=== PATIENT | female | born 1970 | race Caucasian/White ===

== ENCOUNTER 2017-10-02 11:36 | Emergency (ER) | payer BC ==
[2017-10-02] MEDS ORDERED: NS 1,000 ML IV ONE ×2 (12:13)
[2017-10-02] MEDS ORDERED: ONDANSETRON 4 MG/2 ML VIAL IVP ONE (12:13)
[2017-10-02] MEDS ORDERED: KETOROLAC 30 MG/1 ML SDV IVP ONE (12:13)
--- NOTE | 2017-10-02 12:13 | EDPHY ---
H & P Stated Complaint: 2 weeks l flank pain/l abd pain/being worked up for kidney stones Time Seen by Provider: 10/02/17 12:12 HPI/ROS: HPI: This is a 47-year-old female who presents with Chief Complaint: 2 weeks l flank pain/l abd pain/being worked up for kidney stones Location: Left flank Quality: Sharp pain Duration: 1-2 week Signs and Symptoms: no fever, + nausea, no vomiting, no hematemesis, no blood in stool, +abdominal bloating, no diarrhea, no back pain, no urinary symptoms, no vaginal bleeding/discharge, no indigestion, no chest pain, no shortness of breath Timing: Constant Severity: Severe Context: Patient has a history of kidney stones, opiate abuse, diabetes, hypertension presents with the emergency room with complaints 2 week history of left flank pain that radiates up into her chest and accompanied by nausea and abdominal bloating. She has of retroperitoneal ultrasound ordered outpatient tomorrow. She is unsure of her last bowel movement. Denies fever/vomiting/ diarrhea. Eating and drinking normally. Modifying Factors: None Comment: ROS: see HPI Constitutional: No fever, no chills, no weight loss Eyes: No blurred vision Respiratory: No shortness of breath, no cough Cardiovascular: No chest pain, no palpitations Gastrointestinal: No nausea, no vomiting, no diarrhea, no hematemesis, no blood in stool Genitourinary: No dysuria, no blood in urine Extremities: No myalgias, no edema Neurologic: No weakness, no numbness Skin: No rashes, no petechiae Hematologic: No bruising, no bleeding MEDICAL/SURGICAL/SOCIAL HISTORY: Medical history: kidney stones/opiate abuse/diabetic/htn Surgical history: Denies Social history: . Has children. CONSTITUTIONAL: Nontoxic appearing adult white female, awake and alert, no obvious distress HEENT: Atraumatic and normocephalic, PERRL, EOMI. Tympanic membranes clear. Oropharynx clear, no exudate and moist pink mucosa. Airway patent. No lymphadenopathy. No meningismus. Cardiovascular: Normal S1/S2, regular rate, regular rhythm, without murmur rub or gallop. PULMONARY/CHEST: Symmetrical and nontender. Clear to auscultation bilaterally. Good air movement. No accessory muscle usage. ABDOMEN: Soft, nondistended, nontender, no rebound, no guarding, no peritoneal signs, no masses or organomegaly. left CVAT. EXTREMITIES: 2/2 pulses, strength 5/5, no deformities, no clubbing, no cyanosis or edema. NEUROLOGICAL: no focal neuro deficits. GCS 15. SKIN: Warm and dry, no erythema. no rash. Good capillary refill. Source: Patient Exam Limitations: No limitations - Personal History LMP (Females 10-55): 15-21 Days Ago Current Tetanus/Diphtheria Vaccine: Unsure - Medical/Surgical History Hx Asthma: No Hx Chronic Respiratory Disease: No Hx Diabetes: Yes Hx Cardiac Disease: No Hx Renal Disease: Yes Hx Cirrhosis: No Hx Alcoholism: No Hx HIV/AIDS: No Hx Splenectomy or Spleen Trauma: No Other PMH: kidney stones/opiate abuse/diabetic/htn - Social History Smoking Status: Never smoked Constitutional: Initial Vital Signs Temperature (C) 36.8 C 10/02/17 11:41 Heart Rate 90 10/02/17 11:41 Respiratory Rate 16 10/02/17 11:41 Blood Pressure 154/115 H 10/02/17 11:41 O2 Sat (%) 98 10/02/17 11:41 O2 Delivery Mode Room Air Allergies/Adverse Reactions: Penicillins Allergy (Verified 10/02/17 11:39) Home Medications: Medication Instructions Recorded Citalopram 10/02/17 Gralise 10/02/17 Indomethacin 10/02/17 Lisinopril 10/02/17 Metformin HCl 10/02/17 SIMVASTATIN 10/02/17 Tanzeum 10/02/17 busPIRone 10/02/17 Medical Decision Making - Diagnostics Imaging Results: Imaging Impressions Abdomen/Pelvis CT 10/02/17 12:38 Impression: 1. Constipation. 2. 5 cm right adnexal cyst. Ultrasound is recommended for further evaluation. 3. Additional findings as above. Findings discussed with Yodit Douglass on 10/02/2017 at 13:31. Attention: This CT examination is specifically designed to evaluate patients who are clinically suspected of having acute obstructive uropathy. This examination does not use radiographic contrast, and as such, provides only a limited evaluation of the abdomen, pelvis and retroperitoneum. If there is further clinical suspicion for pathological conditions other than obstructive uropathy, a complete CT evaluation of the abdomen and pelvis utilizing intravenous and oral contrast should be considered. ED Course/Re-evaluation: EKG, CT abdomen and pelvis scan, IV fluids, IV medications ordered Vital signs reviewed and no systemic signs upon arrival Given 1 L normal saline, IV Toradol, IV Zofran with adequate relief of pain Labs reviewed mild leukocytosis; creatinine 0.6 Urinalysis shows no signs of infection UDS is positive for benzodiazepines, cocaine, marijuana Serum blood sugar is 350; received IV fluids; patient reports on complains of medication; no signs of DKA Called by Radiology who advised that CT abdomen and pelvis scan shows moderate constipation and 5 cm right adnexal cyst. Ultrasound is recommended for further evaluation. Patient given magnesium citrate and reports that she has a prescription for MiraLax at home already. Reassessed patient who is abdomen soft and nontender. Doubt surgical abdomen. This patient was seen under the supervision of my secondary supervising physician. I evaluated care for this patient independently. Differential Diagnosis: Abdominal pain including but not limited to appendicitis, kidney stone, constipation, cholecystitis, gastritis and urinary tract infection. - Data Points Laboratory Results: Laboratory Results 10/02/17 12:20 10/02/17 12:20 10/02/17 10/02/17 10/02/17 12:20 12:20 12:20 WBC RBC Hgb Hct MCV MCH MCHC RDW Plt Count MPV Neut % (Auto) Lymph % (Auto) [place] % (Auto) Eos % (Auto) Baso % (Auto) Nucleat RBC Rel Count Absolute Neuts (auto) Absolute Lymphs (auto) Absolute Monos (auto) Absolute Eos (auto) Absolute Basos (auto) Absolute Nucleated RBC Immature Gran % Immature Gran # Sodium 137 mEq/L mEq/L (135-145) Potassium 4.5 mEq/L mEq/L (3.5-5.2) Chloride 99 mEq/L mEq/L (97-110) Carbon Dioxide 22 mEq/l mEq/l (22-31) Anion Gap 16 mEq/L mEq/L (8-16) BUN 17 mg/dL mg/dL (7-23) Creatinine 0.6 mg/dL mg/dL (0.6-1.0) Estimated GFR > 60 Glucose 350 mg/dL H mg/dL (70-100) Calcium 9.9 mg/dL mg/dL (8.5-10.4) Total Bilirubin 0.7 mg/dL mg/dL (0.1-1.4) Conjugated Bilirubin 0.3 mg/dL mg/dL (0.0-0.5) Unconjugated Bilirubin 0.4 mg/dL mg/dL (0.0-1.1) AST 20 IU/L IU/L (14-46) ALT 32 IU/L IU/L (9-52) Alkaline Phosphatase 79 IU/L IU/L (38-126) Total Protein 7.9 g/dL g/dL (6.3-8.2) Albumin 4.6 g/dL g/dL (3.5-5.0) Lipase 97 IU/L IU/L (23-300) Beta HCG, Qual NEGATIVE Urine Color YELLOW Urine Appearance CLEAR Urine pH 5.0 (5.0-7.5) Ur Specific [place] 1.032 H (1.002-1.030) Urine Protein NEGATIVE (NEGATIVE) Urine Ketones NEGATIVE (NEGATIVE) Urine Blood NEGATIVE (NEGATIVE) Urine Nitrate NEGATIVE (NEGATIVE) Urine Bilirubin NEGATIVE (NEGATIVE) Urine Urobilinogen NEGATIVE EU EU (0.2-1.0) Ur Leukocyte Esterase NEGATIVE (NEGATIVE) Urine RBC 1-3 /hpf /hpf (0-3) Urine WBC 1-3 /hpf /hpf (0-3) Ur Epithelial Cells TRACE /lpf /lpf (NONE-1+) Urine Glucose 3+ H (NEGATIVE) Urine Opiates Screen NEGATIVE (NEGATIVE) Urine Barbiturates NEGATIVE (NEGATIVE) Ur Phencyclidine Scrn NEGATIVE (NEGATIVE) Ur Amphetamine Screen NEGATIVE (NEGATIVE) U Benzodiazepines Scrn NON-NEGATIVE H (NEGATIVE) Urine Cocaine Screen NON-NEGATIVE H (NEGATIVE) U Marijuana (THC) Screen NON-NEGATIVE H (NEGATIVE) 10/02/17 12:20 WBC 11.76 10^3/uL H 10^3/uL (3.80-9.50) RBC 4.31 10^6/uL 10^6/uL (4.18-5.33) Hgb 13.7 g/dL g/dL (12.6-16.3) Hct 36.8 % L % (38.0-47.0) MCV 85.4 fL fL (81.5-99.8) MCH 31.8 pg pg (27.9-34.1) MCHC 37.2 g/dL H g/dL (32.4-36.7) RDW 11.7 % % (11.5-15.2) Plt Count 327 10^3/uL 10^3/uL (150-400) MPV 9.3 fL fL (8.7-11.7) Neut % (Auto) 74.4 % H % (39.3-74.2) Lymph % (Auto) 20.2 % % (15.0-45.0) [place] % (Auto) 4.6 % % (4.5-13.0) Eos % (Auto) 0.0 % L % (0.6-7.6) Baso % (Auto) 0.5 % % (0.3-1.7) Nucleat RBC Rel Count 0.0 % % (0.0-0.2) Absolute Neuts (auto) 8.75 10^3/uL H 10^3/uL (1.70-6.50) Absolute Lymphs (auto) 2.38 10^3/uL 10^3/uL (1.00-3.00) Absolute Monos (auto) 0.54 10^3/uL 10^3/uL (0.30-0.80) Absolute Eos (auto) 0.00 10^3/uL L 10^3/uL (0.03-0.40) Absolute Basos (auto) 0.06 10^3/uL 10^3/uL (0.02-0.10) Absolute Nucleated RBC 0.00 10^3/uL 10^3/uL (0-0.01) Immature Gran % 0.3 % % (0.0-1.1) Immature Gran # 0.03 10^3/uL 10^3/uL (0.00-0.10) Sodium Potassium Chloride Carbon Dioxide Anion Gap BUN Creatinine Estimated GFR Glucose Calcium Total Bilirubin Conjugated Bilirubin Unconjugated Bilirubin AST ALT Alkaline Phosphatase Total Protein Albumin Lipase Beta HCG, Qual Urine Color Urine Appearance Urine pH Ur Specific [place] Urine Protein Urine Ketones Urine Blood Urine Nitrate Urine Bilirubin Urine Urobilinogen Ur Leukocyte Esterase Urine RBC Urine WBC Ur Epithelial Cells Urine Glucose Urine Opiates Screen Urine Barbiturates Ur Phencyclidine Scrn Ur Amphetamine Screen U Benzodiazepines Scrn Urine Cocaine Screen U Marijuana (THC) Screen Medications Given: Discontinued Medications Sodium Chloride (Ns) 1,000 mls @ 0 mls/hr IV EDNOW ONE; Wide Open PRN Reason: Protocol Stop: 10/02/17 12:14 Last Admin: 10/02/17 12:31 Dose: 1,000 mls Sodium Chloride (Ns) 1,000 mls @ 0 mls/hr IV EDNOW ONE; Wide Open PRN Reason: Protocol Stop: 10/02/17 12:14 Last Admin: 10/02/17 13:33 Dose: 1,000 mls Ketorolac Tromethamine (Toradol) 30 mg IVP EDNOW ONE Stop: 10/02/17 12:14 Last Admin: 10/02/17 12:32 Dose: 30 mg Magnesium Citrate (Magnesium Citrate) 150 ml PO ONCE ONE Stop: 10/02/17 14:06 Last Admin: 10/02/17 14:24 Dose: 150 ml Ondansetron HCl (Zofran) 4 mg IVP EDNOW ONE Stop: 10/02/17 12:14 Last Admin: 10/02/17 12:32 Dose: 4 mg Departure - Departure Disposition: Home, Routine, Self-Care Clinical Impression: Adnexal cyst Constipation Qualifiers: Constipation type: slow transit constipation Qualified Code(s): K59.01 - Slow transit constipation Condition: Good Instructions: Constipation (ED) Additional Instructions: Consume a minimum of 8-10 glasses of water or electrolyte fluid replacement drinks that include Gatorade, Powerade, Pedialyte. Eat a bland diet for the next 48 hours and then slowly advance as tolerated. Drink magnesium citrate 150 mL x1 and then use MiraLax daily as needed for constipation. Return to the Emergency Room if symptoms do not resolve in the next 48-72 hours , you spike a fever > 102 F, or experience intractable abdominal pain/nausea/ vomiting. CT abdomen and pelvis shows 5 cm right adnexal cyst. Ultrasound outpatient is recommended for further evaluation. Referrals: Dhruv Clayton MD [Primary Care Provider] - 10/08/17
--- NOTE | 2017-10-02 12:16 | CPEKG ---
Heart Rate: 88 RR Interval: 682 P-R Interval: 144 QRSD Interval: 76 QT Interval: 352 QTC Interval: 426 P [place]: 37 QRS [place]: 10 T Wave [place]: 41 EKG Severity - OTHERWISE NORMAL ECG - EKG Impression: SINUS RHYTHM EKG Impression: LOW VOLTAGE IN FRONTAL LEADS Electronically Signed By: Mary Roach 02-Oct-2017 15:04:54
[2017-10-02 12:31] LABS: PLATELET COUNT 327 10^3/uL (150-400)
[2017-10-02] MEDS ORDERED: MAGNESIUM CITRATE 300 ML BOTTLE PO ONE (14:05)
[2017-10-02 14:22] VITALS: BP 139/98; PULSE 83; RESP 18; TEMP 99; O2SAT 95
== END 2017-10-02 14:31 | disposition home or self-care (01) ==
DX: K59.01 Slow transit constipation (principal); E27.8 Other specified disorders of adrenal gland; E86.9 Volume depletion, unspecified; I10 Essential (primary) hypertension
CPT/HCPCS: 80305; 96374; J1885; J2405

== ENCOUNTER → 2017-12-05 | Outpatient (CLI) | payer BC | LOC: FIMAGING 16:05 | PROVIDERS: ATTEND Internal Medicine | DX: R07.81 Pleurodynia (principal) ==